=== PATIENT | male | born 1960 | race Caucasian/White ===

== ENCOUNTER 2022-01-13 16:02 | Emergency (ER) | payer MEDICARE, MEDICAID, SELFPAY ==
[2022-01-13 16:29] VITALS: BP 116/74; PULSE 101; RESP 18; TEMP 36.5; O2SAT 97; BMI 30.7
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
[2022-01-13 18:45] VITALS: BP 121/56; PULSE 83; RESP 16; O2SAT 98
== END 2022-01-13 18:48 | disposition home or self-care (01) ==
PROVIDERS: Emergency Provider Registered Nurse
DX: L03.031 Cellulitis of right toe (principal); G89.29 Other chronic pain; R31.9 Hematuria, unspecified; Z79.899 Other long term (current) drug therapy
CPT/HCPCS: 99281

== ENCOUNTER 2022-03-02 01:52 | Emergency (ER) | payer MEDICARE, MEDICAID, OTHER, SELFPAY ==
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
[2022-03-02 02:01] VITALS: BP 136/64; PULSE 104; RESP 20; TEMP 37; O2SAT 98; BMI 24.3
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
[2022-03-02] MEDS: ACETAMINOPHEN 325 MG TABLET 975 MG PO (02:14)
--- NOTE | 2022-03-02 02:58 | PC.NURSE ---
Exam deferred to DR. Morales.
[2022-03-02 03:05] VITALS: BP 140/66; PULSE 96; RESP 18; O2SAT 98
== END 2022-03-02 03:05 | disposition home or self-care (01) ==
PROVIDERS: Emergency Provider Emergency Medicine
DX: S22.31XA Fracture of one rib, right side, initial encounter for closed fracture (principal); S00.81XA Abrasion of other part of head, initial encounter; Y04.2XXA Assault by strike against or bumped into by another person, initial encounter
CPT/HCPCS: 71046; 99283

== ENCOUNTER 2022-10-29 20:19 | Emergency (ER) | payer MEDICARE, MEDICAID, OTHER, SELFPAY ==
[2022-10-29 20:22] VITALS: BP 151/70; PULSE 79; RESP 16; TEMP 36.6; O2SAT 98; BMI 23.1
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
== END 2022-10-29 23:05 | disposition left against medical advice (07) ==
PROVIDERS: Emergency Provider Emergency Medicine
DX: S09.90XA Unspecified injury of head, initial encounter (principal); W50.0XXA Accidental hit or strike by another person, initial encounter
CPT/HCPCS: 70450; 70486; 99283

== ENCOUNTER 2022-10-30 00:48 | Emergency (ER) | payer MEDICARE, MEDICAID, SELFPAY ==
[2022-10-30 01:30] VITALS: BP 161/78; PULSE 88; RESP 18; O2SAT 98
--- NOTE | 2022-10-30 02:30 | PC.NURSE ---
pt informed of wait
--- NOTE | 2022-10-30 04:00 | PC.NURSE ---
called pt with no answer
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
== END 2022-10-30 05:35 | disposition left against medical advice (07) ==
PROVIDERS: Emergency Provider Emergency Medicine
DX: Z71.1 Person with feared health complaint in whom no diagnosis is made (principal)
CPT/HCPCS: 99281

== ENCOUNTER 2023-01-08 15:35 | Emergency (ER) | payer MEDICARE, MEDICAID, SELFPAY ==
[2023-01-08] VITALS (9 sets, daily range): BP systolic 142–177; BP diastolic 77–92; PULSE 80–92; RESP 14–22; TEMP 36.8–36.9; O2SAT 97–100; BMI 19.1
--- NOTE | 2023-01-08 15:44 | ED_ITS ---
HPI - Altered Mental Status General Chief Complaint: Nausea/Vomiting/Diarrhea Stated Complaint: Nausea Time Seen by Provider: 01/08/23 15:37 History of Present Illness HPI narrative: Patient is a 62-year-old male history of bipolar disease alcohol use and substance abuse presenting today with nausea vomiting. Reports that he started going through withdrawal from fentanyl and alcohol 4 days ago when he was in custodial. He was released today. Questionable if he got Narcan today after using fentanyl last night. EMS did not give it to is possible he self administered it himself he was found with some Narcan. He denies any abdominal pain. Overall an extremely poor historian. Related Data Home Medications Medication Instructions Recorded Confirmed aspirin 81 mg chewable tablet 81 mg PO QDAY ##0 04/09/12 pantoprazole 40 mg tablet,delayed 40 mg PO QDAY ##0 04/09/12 release (Protonix) ziprasidone HCl 80 mg capsule 80 mg PO BID ##0 04/09/12 (Geodon) Previous Rx's Medication Instructions Recorded ondansetron 4 mg disintegrating 4 mg PO Q8H PRN nausea and 01/08/23 tablet vomiting #10 tabs Allergies Allergy/AdvReac Type Severity Reaction Status Date / Time lisinopril Allergy Verified 01/13/22 16:29 Review of Systems Review of Systems ROS Unobtainable: All systems reviewed & are unremarkable except as noted in HPI and below Patient History Social History Smoking Status: Current every day smoker Smoking Status: Current every day smoker tobacco type: cigarettes alcohol intake frequency: 3 or more drinks per day Substance Use Type: marijuana, opiates and methamphetamine Exam Initial Vital Signs Initial Vital Signs: Vital Signs Pulse Rate 85 01/08/23 15:39 Pulse Oximetry 100 01/08/23 15:39 GENERAL: Thin 62-year-old male poor hygiene HEENT: Head atraumatic,EOMI, pupils reactive, face symmetric, moist mucous membranes CARDIOVASCULAR: Regular rate and rhythm without murmurs, rubs or gallops. RESPIRATORY: Breath sounds equal bilaterally, no wheezes rales or rhonchi. ABDOMEN: Soft, nontender. Normoactive bowel sounds all 4 quadrants. No guarding or rebound. EXTREMITIES: Normal range of motion, no clubbing or edema. Neurovascularly intact NEUROLOGICAL: Alert and oriented x4. SKIN: Warm, dry, no laceration, no petechiae, no rashes or lesions. Course Orders Ordered: ED Orders 01/08/23 16:00 Acetaminophen Stat Complete Blood Count AUTO DIFF Stat Comprehensive Metabolic Panel Stat Ethanol (ETOH) Stat Lactate (Lactic Acid) Stat Salicylate Stat Troponin & CK Cardiac Panel Stat 01/08/23 17:47 CT head/brain wo con Stat 01/08/23 17:52 Urine Drug Screen, Rapid Stat Discontinued Medications Sodium Chloride (Normal Saline 0.9%) 1,000 mls @ 1,000 mls/hr IV BOLUS ONE Stop: 01/08/23 16:44 Last Infusion: 01/08/23 17:17 Dose: 0 mls/hr Documented By: Admin: 01/08/23 16:10 Dose: 1,000 mls/hr Documented By: XIAO Sodium Chloride (Normal Saline 0.9%) 1,000 mls @ 1,000 mls/hr IV BOLUS ONE Stop: 01/08/23 18:38 Last Infusion: 01/08/23 18:47 Dose: 0 mls/hr Documented By: Infusion: 01/08/23 18:12 Dose: 1,000 mls/hr Documented By: VEE(2) Infusion: 01/08/23 17:46 Dose: 0 mls/hr Documented By: Admin: 01/08/23 17:44 Dose: 1,000 mls/hr Documented By: XIAO Ondansetron HCl (Ondansetron 4 Mg/2 Ml Inj) 4 mg IV NOW ONE Stop: 01/08/23 15:46 Last Admin: 01/08/23 16:09 Dose: 4 mg Documented By: XIAO Vital Signs Vital signs: Vital Signs - 8 hr 01/08/23 16:07 01/08/23 16:00 01/08/23 15:39 Temperature 98.3 F 98.5 F Pulse Rate 92 H 80 85 Respiratory Rate 16 16 Blood Pressure 142/77 H 162/83 H Pulse Oximetry 98 100 100 Oxygen Delivery Method Room Air Room Air 01/08/23 15:42 01/08/23 15:42 01/08/23 16:00 Temperature Pulse Rate 83 84 Respiratory Rate 14 18 Blood Pressure 162/83 H Pulse Oximetry 99 100 Oxygen Delivery Method 01/08/23 16:30 01/08/23 17:00 01/08/23 17:01 Temperature Pulse Rate 84 88 90 Respiratory Rate 21 21 21 Blood Pressure Pulse Oximetry 97 99 99 Oxygen Delivery Method 01/08/23 17:01 01/08/23 17:15 01/08/23 17:15 Temperature Pulse Rate 88 Respiratory Rate 22 Blood Pressure 168/78 H 167/92 H Pulse Oximetry 99 Oxygen Delivery Method Room Air 01/08/23 18:47 Temperature Pulse Rate 80 Respiratory Rate Blood Pressure 177/83 H Pulse Oximetry 99 Oxygen Delivery Method Room Air MDM - Altered Mental Status Lab Data 01/08/23 16:00 01/08/23 16:00 Labs: Lab Results 01/08/23 01/08/23 01/08/23 Range/Units 16:00 16:00 16:00 WBC 11.2 H (4.5-11.0) X10^3/uL RBC 3.63 L (4.5-5.9) X10^6/uL Hgb 11.2 L (13.5-17.5) g/dL Hct 32.6 L (41-53) % MCV 89.9 (80-100) fL MCH 30.8 (26-34) PG MCHC 34.2 (30-36) % RDW 13.2 (11.6-14.8) % Plt Count 253 (150-400) X10^3/uL Neut % (Auto) 81.2 H (50-75) % Lymph % (Auto) 11.2 L (25-40) % [place] % (Auto) 7.0 (3-14) % Eos % (Auto) 0.3 L (2-4) % Baso % (Auto) 0.3 (0-2) % Neut # (Auto) 9100 H (2738-7219) /uL Lymph # (Auto) 1200 (6620-2402) /uL [place] # (Auto) 800 (0-900) /uL Eos # (Auto) 0 (0-450) /uL Baso # (Auto) 0 (0-100) /uL Sodium 132 L (137-145) mmol/L Potassium 3.7 (3.4-5.1) mmol/L Chloride 97 L (98-107) mmol/L Carbon Dioxide 30 (22-32) mmol/L BUN 27 H (9-20) mg/dL Creatinine 0.94 (0.66-1.25) mg/dL Estimated GFR > 60 (>60) mL/min BUN/Creatinine Ratio 28.7 H (6-22) Glucose 114 H (80-110) mg/dL Lactate (0.7-2.1) mmol/L Calcium 9.2 (8.4-10.2) mg/dL Total Bilirubin 0.7 (0.2-1.3) mg/dL AST 29 (17-59) IU/L ALT 27 (<50) IU/L Alkaline Phosphatase 124 (38-126) U/L Total Creatine Kinase 141 (55-170) U/L CK-MB (CK-2) TNP CK-MB (CK-2) Rel Index TNP Troponin I < 0.012 (0.01-0.034) ng/mL Total Protein 7.0 (6.3-8.2) g/dL Albumin 4.1 (3.5-5.0) g/dL Globulin 2.9 (1.7-4.1) g/dL Albumin/Globulin Ratio 1.4 (1.0-2.8) Salicylates 2.7 (<20) mg/dL U Opiates 300ng/mL cut (Negative) Ur Oxycodone Screen (Negative) Urine Methadone Screen (Negative) Acetaminophen < 10 (10-30) ug/mL Ur Barbiturates Screen (Negative) U Tricyclic Antidepress (Negative) Ur Phencyclidine Scrn (Negative) Ur Amphetamines Screen (Negative) U Methamphetamines Scrn (Negative) Ur MDMA Scrn (Ecstasy) (Negative) U Benzodiazepines Scrn (Negative) Urine Cocaine Screen (Negative) U Marijuana (THC) Screen (Negative) Ethyl Alcohol < 10 ( - 10) mg/dL 01/08/23 01/08/23 Range/Units 16:00 17:52 WBC (4.5-11.0) X10^3/uL RBC (4.5-5.9) X10^6/uL Hgb (13.5-17.5) g/dL Hct (41-53) % MCV (80-100) fL MCH (26-34) PG MCHC (30-36) % RDW (11.6-14.8) % Plt Count (150-400) X10^3/uL Neut % (Auto) (50-75) % Lymph % (Auto) (25-40) % [place] % (Auto) (3-14) % Eos % (Auto) (2-4) % Baso % (Auto) (0-2) % Neut # (Auto) (8755-6265) /uL Lymph # (Auto) (6049-7142) /uL [place] # (Auto) (0-900) /uL Eos # (Auto) (0-450) /uL Baso # (Auto) (0-100) /uL Sodium (137-145) mmol/L Potassium (3.4-5.1) mmol/L Chloride (98-107) mmol/L Carbon Dioxide (22-32) mmol/L BUN (9-20) mg/dL Creatinine (0.66-1.25) mg/dL Estimated GFR (>60) mL/min BUN/Creatinine Ratio (6-22) Glucose (80-110) mg/dL Lactate 0.7 (0.7-2.1) mmol/L Calcium (8.4-10.2) mg/dL Total Bilirubin (0.2-1.3) mg/dL AST (17-59) IU/L ALT (<50) IU/L Alkaline Phosphatase (38-126) U/L Total Creatine Kinase (55-170) U/L CK-MB (CK-2) CK-MB (CK-2) Rel Index Troponin I (0.01-0.034) ng/mL Total Protein (6.3-8.2) g/dL Albumin (3.5-5.0) g/dL Globulin (1.7-4.1) g/dL Albumin/Globulin Ratio (1.0-2.8) Salicylates (<20) mg/dL U Opiates 300ng/mL cut Negative (Negative) Ur Oxycodone Screen Negative (Negative) Urine Methadone Screen Negative (Negative) Acetaminophen (10-30) ug/mL Ur Barbiturates Screen Negative (Negative) U Tricyclic Antidepress Negative (Negative) Ur Phencyclidine Scrn Negative (Negative) Ur Amphetamines Screen Negative (Negative) U Methamphetamines Scrn Negative (Negative) Ur MDMA Scrn (Ecstasy) Negative (Negative) U Benzodiazepines Scrn Positive H (Negative) Urine Cocaine Screen Negative (Negative) U Marijuana (THC) Screen Positive H (Negative) Ethyl Alcohol ( - 10) mg/dL Point of Care Testing Glucose POC 151 Urine Dip Bedside Urine Glucose Negative Bedside Urine Bilirubin - Negative Bedside Urine Ketone + 15 Urine Specific [place] 1.020 Bedside Urine Occult Blood - Negative Bedside Urine pH 6.0 Bedside Urine Protein - Negative Bedside Urine Urobilinogen - Negative Bedside Urine Nitrite - Negative Bedside Urine Leukocytes - Negative Esterase Imaging Data CT scan - head: Radiologist's Impression: PROCEDURE:? CT HEAD/BRAIN WO CON ? INDICATIONS:? unsteady, substance abuse ? TECHNIQUE:? Noncontrast 4.5 mm thick angled axial sections acquired from the foramen magnum to the vertex, with coronal and sagittal reformats.? For radiation dose reduction, the following was used:? automated exposure control, adjustment of mA and/or kV according to patient size.? ? COMPARISON:? [facility], CT, CT FACIAL BONES WO CON, 10/29/2022, 20:38.? [facility], CR, XR CERVICAL SPINE 2 OR 3 VIEWS, 10/02/2022, 16:36.? [facility], CT, CT HEAD/BRAIN WO CON, 10/29/2022, 20:38. ? FINDINGS:? Image quality:? Excellent.? ? CSF spaces:? Basal cisterns are patent.? No extra-axial fluid collections.? The ventricles are symmetric in size and shape.? ? Brain:? No intracranial bleeds or masses.? There is mild cerebral volume loss for age, with resultant ventricular and sulcal prominence.? There are minimal periventricular and deep white matter chronic small vessel ischemic changes.? There is intracranial internal carotid artery atherosclerosis.? ? Skull and face:? Calvarium and visualized facial bones appear intact, without suspicious lesions.? ? Sinuses:? 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 Mild left maxillary sinus mucosal thickening.? The mastoids are clear.? ? IMPRESSION:? ? 1. No acute intracranial abnormalities. ? ? ? Dictated by: Lyndon Javier M.D. on 01/08/2023 at 18:02 ? ? MDM Narrative Medical decision making narrative: Patient 62-year-old male with history of bipolar polysubstance use presenting today with vomiting nausea, received Narcan prior to arrival. He is questionable what time he got Narcan bit seem to be nasal administered dose. He has been in the ED for 2 hours. He is not vomiting. Blood work does not show any alcohol level electrolyte abnormality or [place]. He is extremely thin and malnourished but albumin is 4.1. He has a negative troponin. He ambulated in the ED. Taxi cab is called. Discharge Plan Departure Patient Disposition: Home Clinical Impression: Opiate dependence, Gastroenteritis Instructions: DI for Viral Gastroenteritis -- Adult Activity Restrictions/Additional Instructions: *You have been diagnosed with polysubstance abuse, gastroenteritis *What to do: Increase fluid intake as tolerated recommend Pedialyte Gatorade *Continue to take medications as directed Zofran 4 mg every 8 hours if needed for nausea vomiting *Follow up with your primary care provider in 2-3 days or call [phone] *Return to ER if you should have persistent vomiting weakness passing out or any new, worsening or concerning symptoms Prescriptions: New ondansetron 4 mg tablet,disintegrating 4 mg PO Q8H PRN (Reason: nausea and vomiting) Qty: 10 0RF No Action pantoprazole [Protonix] 40 MG tablet,delayed release (DR/EC) 40 mg PO QDAY Qty: 0 ziprasidone HCl [Geodon] 80 MG capsule 80 mg PO BID Qty: 0 aspirin 81 MG tablet,chewable 81 mg PO QDAY Qty: 0 Stand Alone Forms: Patient Portal/API
[2023-01-08] MEDS: ONDANSETRON 4 MG/2 ML INJ IV (16:09)
[2023-01-08] MEDS: SODIUM CHLORIDE 0.9% 1,000 ML 1000 ML IV ×2 (16:10→17:44)
[2023-01-08 16:11] LABS: Add Manual Diff / Slide Review NO; Basophils Absolute Auto 0 /uL (0-100); Basophils Percent Auto 0.3 % (0-2); Eosinophils Absolute Auto 0 /uL (0-450); Eosinophils Percent Auto 0.3 % (2-4); Hematocrit 32.6 % (41-53); Hemoglobin 11.2 g/dL (13.5-17.5); Lymphocytes Absolute Auto 1200 /uL (1100-4500); Lymphocytes Percent Auto 11.2 % (25-40); Mean Corpuscular HGB Conc 34.2 % (30-36); Mean Corpuscular Hemoglobin 30.8 PG (26-34); Mean Corpuscular Volume 89.9 fL (80-100); Monocytes Absolute Auto 800 /uL (0-900); Neutrophils Absolute Auto 9100 /uL (1500-7000); Neutrophils Percent Auto 81.2 % (50-75); Platelet Count 253 X10^3/uL (150-400); Red Blood Cell Count 3.63 X10^6/uL (4.5-5.9); Red Cell Distribution Width 13.2 % (11.6-14.8); White Blood Cell Count 11.2 X10^3/uL (4.5-11.0)
[2023-01-08 16:19] LABS: Creatine Kinase 141 U/L (55-170)
[2023-01-08 16:21] LABS: Acetaminophen < 10 ug/mL (10-30); Alanine Aminotransferase 27 IU/L (<50); Albumin 4.1 g/dL (3.5-5.0); Albumin Globulin Ratio 1.4 (1.0-2.8); Alkaline Phosphatase 124 U/L (38-126); Aspartate Aminotransferase 29 IU/L (17-59); BUN Creatinine Ratio 28.7 (6-22); Bilirubin Total 0.7 mg/dL (0.2-1.3); Blood Urea Nitrogen 27 mg/dL (9-20); Calcium 9.2 mg/dL (8.4-10.2); Carbon Dioxide 30 mmol/L (22-32); Chloride 97 mmol/L (98-107); Estimated Glomerular Filt Rate > 60 mL/min (>60); Ethanol (ETOH) < 10 mg/dL; Globulin 2.9 g/dL (1.7-4.1); Glucose 114 mg/dL (80-110); HEMOLYSIS < 15 (0-50); Lactate (Lactic Acid) 0.7 mmol/L (0.7-2.1); Potassium 3.7 mmol/L (3.4-5.1); Salicylate 2.7 mg/dL (<20); Sodium 132 mmol/L (137-145)
[2023-01-08 16:32] LABS: Troponin I < 0.012 ng/mL (0.01-0.034)
--- NOTE | 2023-01-08 17:47 | DI.CT.S_ITS ---
PROCEDURE: CT HEAD/BRAIN WO CON INDICATIONS: unsteady, substance abuse TECHNIQUE: Noncontrast 4.5 mm thick angled axial sections acquired from the foramen magnum to the vertex, with coronal and sagittal reformats. For radiation dose reduction, the following was used: automated exposure control, adjustment of mA and/or kV according to patient size. COMPARISON: [facility], CT, CT FACIAL BONES WO CON, 10/29/2022, 20:38. [facility], CR, XR CERVICAL SPINE 2 OR 3 VIEWS, 10/02/2022, 16:36. [facility], CT, CT HEAD/BRAIN WO CON, 10/29/2022, 20:38. FINDINGS: Image quality: Excellent. CSF spaces: Basal cisterns are patent. No extra-axial fluid collections. The ventricles are symmetric in size and shape. Brain: No intracranial bleeds or masses. There is mild cerebral volume loss for age, with resultant ventricular and sulcal prominence. There are minimal periventricular and deep white matter chronic small vessel ischemic changes. There is intracranial internal carotid artery atherosclerosis. Skull and face: Calvarium and visualized facial bones appear intact, without suspicious lesions. 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 Mild left maxillary sinus mucosal thickening. The mastoids are clear. IMPRESSION: 1. No acute intracranial abnormalities. Dictated by: Lyndon Javier M.D. on 01/08/2023 at 18:02 Approved by: Lyndon Javier M.D. on 01/08/2023 at 18:05
[2023-01-08 18:14] LABS: UR Morphine/Opiate cutoff 300 Negative (Negative); Ur Creatinine Normal (Normal); Ur Specific Gravity Normal (Normal); Urine Amphetamines Negative (Negative); Urine Barbiturates Negative (Negative); Urine Benzodiazepines Positive (Negative); Urine Cocaine Negative (Negative); Urine MDMA Negative (Negative); Urine Methamphetamines Negative (Negative); Urine Phencyclidine Negative (Negative); Urine Tetrahydrocannabinol Positive (Negative); Urine pH Normal (Normal)
[2023-01-08 18:15] LABS: Urine Methadone Negative (Negative); Urine Oxycodone Negative (Negative); Urine Tricyclic Antidepressant Negative (Negative)
== END 2023-01-08 18:41 | disposition home or self-care (01) ==
PROVIDERS: Emergency Provider Emergency Medicine
DX: K52.9 Noninfective gastroenteritis and colitis, unspecified (principal); F11.20 Opioid dependence, uncomplicated
CPT/HCPCS: 36415; 70450; 80053; 80305; 80320; 80329; 81003; 82550; 83605; 84484; 85025; 96361; 96374; 99284; G0480; J2405